=== PATIENT | male | born 1990 | race Caucasian/White ===

== ENCOUNTER 2022-01-07 08:32 | Outpatient (CLI) | payer OTHER, SELFPAY ==
[2022-01-07 12:26] LABS: Chloride* 104 mmol/L (96-114)
[2022-01-07 12:27] LABS: Potassium* 4.5 mmol/L (3.6-5.1); Sodium* 139 mmol/L (135-149)
[2022-01-07 12:30] LABS: Blood Urea Nitrogen* 12 mg/dL (5-24); Calcium* 9.3 mg/dL (8.4-10.6); Carbon Dioxide* 29 mmol/L (20-32); Cholesterol* 236 mg/dL (90-199); Estimated Glomerular Filt Rate 103 ml/min; Glucose* 96 mg/dL (60-115); Triglycerides* 383 mg/dL (40-149)
[2022-01-07 12:31] LABS: HDL Cholesterol* 35 mg/dL (>=40); LDL Cholesterol Calculated 124 mg/dL (<100)
== END 2022-01-07 08:33 | disposition home or self-care (01) ==
LOC: FRMREF 08:34
PROVIDERS: PCP Family Medicine; Visit Provider Family Medicine
DX: Z00.00 Encounter for general adult medical examination without abnormal findings (principal); L65.9 Nonscarring hair loss, unspecified; L30.9 Dermatitis, unspecified; Z13.6 Encounter for screening for cardiovascular disorders
CPT/HCPCS: 80048; 80061

== ENCOUNTER 2023-09-28 09:11 | Outpatient (CLI) | payer OTHER, SELFPAY | END 2023-09-28 09:12 | disposition home or self-care (01) | PROVIDERS: PCP Family Medicine; Visit Provider Physician Assistant Medical | DX: Z13.228 Encounter for screening for other metabolic disorders (principal); Z13.29 Encounter for screening for other suspected endocrine disorder; Z13.0 Encounter for screening for diseases of the blood and blood-forming organs and certain disorders involving the immune mechanism; Z13.220 Encounter for screening for lipoid disorders; Z13.1 Encounter for screening for diabetes mellitus | CPT/HCPCS: 80053; 80061; 84443 ==

== ENCOUNTER 2025-04-17 08:30 | Outpatient (CLI) | payer OTHER, SELFPAY | END 2025-04-17 08:31 | disposition home or self-care (01) | LOC: NFLDREF 04-18 05:51 | PROVIDERS: PCP Physician Assistant Medical; Referring Provider Physician Assistant Medical; Visit Provider Family Medicine | DX: Z00.00 Encounter for general adult medical examination without abnormal findings (principal); Z13.6 Encounter for screening for cardiovascular disorders; Z13.29 Encounter for screening for other suspected endocrine disorder | CPT/HCPCS: 80053; 80061; 84443 ==